=== PATIENT | female | born 1965 | race Caucasian/White ===

== ENCOUNTER 2018-05-08 06:12 | Day surgery (SDC) | payer OTHER ==
[2018-05-08] MEDS ORDERED: EPINEPHrine 0.1 MG/ML SYG (06:40)
[2018-05-08] MEDS ORDERED: SOD CHLORIDE 0.9% 1,000 ML IV (07:00)
[2018-05-08] MEDS ORDERED: FENTAnyl 50 MCG/ML VIAL IV ×3 (07:30)
[2018-05-08] MEDS ORDERED: MIDAZOLAM 1 MG/ML 2 ML INJ IV (07:30)
[2018-05-08] MEDS ORDERED: EPHEDrine SULFATE 50 MG/5 ML SYG IV (07:30)
[2018-05-08] MEDS ORDERED: hydrALAzine 20 MG INJ IV (07:30)
[2018-05-08] MEDS ORDERED: HYDROmorphONE 1 MG/5 ML IV SYRINGE IV (07:30)
[2018-05-08] MEDS ORDERED: OXYCODONE/ACETAMINOPHEN (5/325) TAB PO (07:30)
[2018-05-08] MEDS ORDERED: ALBUTEROL 0.083% (NEB) 2.5 MG/3 ML AMP HHN (07:30)
[2018-05-08] MEDS ORDERED: TRIMETHOBENZAMIDE 100 MG/ML VIAL IM (07:30)
[2018-05-08] MEDS ORDERED: IPRATROPIUM (NEB) 0.5 MG/2.5 ML AMP HHN (07:30)
[2018-05-08] MEDS ORDERED: LABETALOL HCL 20MG INJ IV (07:30)
[2018-05-08] MEDS ORDERED: GLYCOPYRROLATE 0.4 MG INJ (07:40)
[2018-05-08] MEDS ORDERED: PROPOFOL 20 ML (07:40)
[2018-05-08] MEDS ORDERED: CEFAZOLIN 1 GM INJ (07:40)
[2018-05-08] MEDS ORDERED: NEOSTIGMINE 3 MG/3 ML SYRINGE (07:40)
[2018-05-08] MEDS ORDERED: ROCURONIUM 50 MG INJ (07:40)
[2018-05-08] MEDS ORDERED: MIDAZOLAM 1 MG/ML 2 ML INJ (07:41)
[2018-05-08] MEDS ORDERED: FENTAnyl 50 MCG/ML VIAL ×2 (07:41→09:59)
[2018-05-08] MEDS ORDERED: ONDANSETRON 4 MG INJ (07:41)
[2018-05-08] MEDS ORDERED: DEXAMETHASONE 4 MG/ML 1 ML INJ (07:41)
[2018-05-08] MEDS ORDERED: morphine 2 MG INJ IV (08:00)
[2018-05-08] MEDS ORDERED: traMADol 50 MG TAB PO (08:00)
[2018-05-08] MEDS ORDERED: ONDANSETRON 4 MG INJ IV (08:00)
[2018-05-08] MEDS ORDERED: EPINEPHrine 1 MG INJ (08:03)
[2018-05-08] MEDS: POLYMYXIN/BACITRACIN 1L IRRIG (08:12)
[2018-05-08] MEDS: BUPIVACAINE LIPOSOME/PF 266 MG/20 ML VIAL INFIL (08:15)
[2018-05-08] MEDS: MEPERIDINE 25 MG INJ IV (10:09)
[2018-05-08] MEDS: DIPHENHYDRAMINE 50 MG INJ IV (10:14)
[2018-05-08] MEDS: HYDROmorphONE 1 MG/5 ML IV SYRINGE IV ×2 (10:14→10:49)
[2018-05-08] MEDS: ONDANSETRON 4 MG INJ IV (10:15)
[2018-05-08] MEDS: OXYCODONE/ACETAMINOPHEN (5/325) TAB PO (11:43)
== END 2018-05-08 12:30 | disposition home or self-care (01) ==
LOC: SDS 06:12
DX: N65.1 Disproportion of reconstructed breast (principal); Z85.3 Personal history of malignant neoplasm of breast
CPT/HCPCS: 19318; 84703; 88305

== ENCOUNTER 2018-10-02 09:19 | Day surgery (SDC) | payer OTHER ==
[~2018-10-02 09:19] MED LIST: SOD CHLORIDE 0.9% 1,000 ML IV
[2018-10-02] MEDS ORDERED: MIDAZOLAM 1 MG/ML 2 ML INJ (10:30)
[2018-10-02] MEDS ORDERED: GLYCOPYRROLATE 0.4 MG INJ (10:30)
[2018-10-02] MEDS ORDERED: CEFAZOLIN 1 GM INJ (10:30)
[2018-10-02] MEDS ORDERED: PROPOFOL 20 ML (10:30)
[2018-10-02] MEDS ORDERED: NEOSTIGMINE 3 MG/3 ML SYRINGE (10:30)
[2018-10-02] MEDS ORDERED: DEXAMETHASONE 4 MG/ML 5 ML INJ (10:30)
[2018-10-02] MEDS ORDERED: ROCURONIUM 50 MG INJ (10:30)
[2018-10-02] MEDS ORDERED: FENTAnyl 50 MCG/ML VIAL (10:30)
[2018-10-02] MEDS ORDERED: ONDANSETRON 4 MG INJ (10:30)
[2018-10-02] MEDS: ONDANSETRON 4 MG INJ IV ×2 (10:49→14:20)
[2018-10-02] MEDS ORDERED: TRIMETHOBENZAMIDE 100 MG/ML VIAL IM (12:00)
[2018-10-02] MEDS ORDERED: DIPHENHYDRAMINE 50 MG INJ IV (12:00)
[2018-10-02] MEDS ORDERED: morphine 2 MG INJ IV (12:00)
[2018-10-02] MEDS ORDERED: OXYCODONE/ACETAMINOPHEN (5/325) TAB PO (12:00)
[2018-10-02] MEDS ORDERED: EPHEDrine SULFATE 50 MG/5 ML SYG IV (12:00)
[2018-10-02] MEDS ORDERED: HYDROmorphONE 1 MG/5 ML IV SYRINGE IV ×3 (12:00)
[2018-10-02] MEDS ORDERED: MIDAZOLAM 1 MG/ML 2 ML INJ IV (12:00)
[2018-10-02] MEDS ORDERED: ONDANSETRON 4 MG INJ IV (12:00)
[2018-10-02] MEDS ORDERED: HYDROCODONE/APAP (5/325) TAB PO (12:00)
[2018-10-02] MEDS ORDERED: FENTAnyl 50 MCG/ML VIAL IV ×2 (12:00)
[2018-10-02] MEDS ORDERED: ACETAMINOPHEN 325 MG TAB PO (12:00)
[2018-10-02] MEDS ORDERED: LABETALOL HCL 20MG INJ IV (12:00)
[2018-10-02] MEDS ORDERED: IPRATROPIUM (NEB) 0.5 MG/2.5 ML AMP HHN (12:00)
[2018-10-02] MEDS ORDERED: ALBUTEROL 0.083% (NEB) 2.5 MG/3 ML AMP HHN (12:00)
[2018-10-02] MEDS: POLYMYXIN/BACITRACIN 1L IRRIG (12:08)
[2018-10-02] MEDS: BUPIVACAINE 0.25%/EPI (SDV) 30 ML INJ (12:08)
[2018-10-02] MEDS: GENTAMICIN 80 MG INJ (12:08)
[2018-10-02] MEDS: BUPIVACAINE LIPOSOME/PF 266 MG/20 ML VIAL INFIL (12:22)
[2018-10-02] MEDS: FENTAnyl 50 MCG/ML VIAL IV (13:39)
[2018-10-02] MEDS: MEPERIDINE 25 MG INJ IV (13:40)
[2018-10-02] MEDS: hydrALAzine 20 MG INJ IV (14:21)
[2018-10-02] MEDS: OXYCODONE/ACETAMINOPHEN (5/325) TAB PO (14:21)
== END 2018-10-02 16:02 | disposition home or self-care (01) ==
LOC: SDS 09:19
DX: N65.1 Disproportion of reconstructed breast (principal); Z85.3 Personal history of malignant neoplasm of breast; J45.909 Unspecified asthma, uncomplicated
CPT/HCPCS: 19342; 88307

== ENCOUNTER 2019-02-05 09:36 | Day surgery (SDC) | payer OTHER ==
[2019-02-05] MEDS ORDERED: SOD CHLORIDE 0.9% 1,000 ML IV (11:30)
[2019-02-05] MEDS ORDERED: SEVOFLURANE 15 MIN (13:00)
[2019-02-05] MEDS ORDERED: ATROPINE 1 MG/10 ML SYRINGE (13:00)
[2019-02-05] MEDS ORDERED: EPHEDrine 25 MG/5 ML SYG (13:00)
[2019-02-05] MEDS ORDERED: GENTAMICIN 80 MG INJ (13:07)
[2019-02-05] MEDS ORDERED: POLYMYXIN/BACITRACIN 1L IRRIG (13:07)
[2019-02-05] MEDS ORDERED: LIDOCAINE 2% (SDV) 5 ML INJ (13:08)
[2019-02-05] MEDS ORDERED: GLYCOPYRROLATE 0.4 MG INJ (13:08)
[2019-02-05] MEDS ORDERED: ROCURONIUM 50 MG INJ (13:08)
[2019-02-05] MEDS ORDERED: PROPOFOL 20 ML (13:08)
[2019-02-05] MEDS ORDERED: MEPERIDINE 100 MG INJ (13:08)
[2019-02-05] MEDS ORDERED: NEOSTIGMINE 3 MG/3 ML SYRINGE (13:08)
[2019-02-05] MEDS ORDERED: SUCCINYLCHOLINE CHLORIDE 100 MG/5 ML SYG IV (13:08)
[2019-02-05] MEDS ORDERED: METOCLOPRAMIDE 10 MG INJ (13:09)
[2019-02-05] MEDS ORDERED: CEFAZOLIN 1 GM INJ (13:09)
[2019-02-05] MEDS ORDERED: ONDANSETRON 4 MG INJ (13:09)
[2019-02-05] MEDS ORDERED: EPINEPHrine 0.1 MG/ML SYG (13:14)
[2019-02-05] MEDS ORDERED: EPINEPHrine 1 MG/ML 30 ML INJ (13:15)
[2019-02-05] MEDS ORDERED: ONDANSETRON 4 MG INJ IV ×2 (13:30→15:30)
[2019-02-05] MEDS ORDERED: HYDROCODONE/APAP (5/325) TAB PO (13:30)
[2019-02-05] MEDS ORDERED: morphine 2 MG INJ IV (13:30)
[2019-02-05] MEDS: BUPIVACAINE LIPOSOME/PF 266 MG/20 ML VIAL INFIL (14:11)
[2019-02-05] MEDS: EPINEPHrine 1 MG INJ (14:14)
[2019-02-05] MEDS ORDERED: BACITRACIN/POLYMYXIN 28.35 GM OINT TOP (14:43)
[2019-02-05] MEDS ORDERED: ACETAMINOPHEN 325 MG TAB PO (15:00)
[2019-02-05] MEDS ORDERED: OXYCODONE/ACETAMINOPHEN (5/325) TAB PO ×2 (15:30)
[2019-02-05] MEDS ORDERED: MIDAZOLAM 1 MG/ML 2 ML INJ IV (15:30)
[2019-02-05] MEDS ORDERED: DIPHENHYDRAMINE 50 MG INJ IV (15:30)
[2019-02-05] MEDS ORDERED: METOCLOPRAMIDE 10 MG INJ IV (15:30)
[2019-02-05] MEDS ORDERED: FENTAnyl 50 MCG/ML VIAL IV ×3 (15:30)
[2019-02-05] MEDS ORDERED: hydrALAzine 20 MG INJ IV (15:30)
[2019-02-05] MEDS ORDERED: LABETALOL HCL 20MG INJ IV (15:30)
[2019-02-05] MEDS ORDERED: EPHEDrine 25 MG/5 ML SYG IV (15:30)
[2019-02-05] MEDS ORDERED: HYDROmorphONE 1 MG/5 ML IV SYRINGE IV ×3 (15:30)
[2019-02-05] MEDS: MEPERIDINE 25 MG INJ IV (15:47)
== END 2019-02-05 16:40 | disposition home or self-care (01) ==
LOC: SDS 09:36
DX: Z90.12 Acquired absence of left breast and nipple (principal); Z85.3 Personal history of malignant neoplasm of breast
CPT/HCPCS: 19350; 84703